=== PATIENT | female | born 1985 | race Hispanic/Latino ===

== ENCOUNTER 2016-10-28 09:43 | Day surgery (SDC) | payer OTHER ==
[~2016-10-28] VITALS: Ht 167.6 cm; Wt 108.0 kg
[~2016-10-28 09:43] MED LIST: ASC500 PO; BENZ100C8 PO; DERSP TOP; IBUP-1152 PO; PHEN-683 PO; Sodium Chloride LOK Flush 10 mL Syringe IV PRN; TOLT1TAB2 PO; fentaNYL-PF 50 mCg/mL 2 mL Inj IVPUSH PRN
[2016-10-28 10:26] VITALS: BP 151/84; PULSE 67; RESP 16; O2SAT 99
[2016-10-28] MEDS: 0.9% Sodium Chloride 1,000 ML IV SCH ×2 (10:43→11:23)
[2016-10-28 11:29] VITALS: BP 106/58; PULSE 68; RESP 14; O2SAT 96
[2016-10-28 11:47] VITALS: BP 108/57; PULSE 68; RESP 14; O2SAT 98
[2016-10-28 11:50] VITALS: BP 115/69; PULSE 68; RESP 20; O2SAT 100
--- NOTE | 2016-10-28 12:12 | ENDO ---
[address] [address] ENDOSCOPY PROCEDURE PATIENT: CHAUNCEY LOYA : 1985 MR#: [id number] ADMIT: 10/28/2016 JOB ID: [id number] DATE: 10/28/2016 PROCEDURE: Colonoscopy. INDICATION: Patient with a three year history of alternating constipation and diarrhea. The patient's ASA classification is 1. Mallampati score is 2. MEDICATIONS: Versed at 5 mg, fentanyl 100 mcg. INSTRUMENT USED: [id number]. PREP QUALITY: Good. PROCEDURE DETAILS: After informed consent was obtained, the patient was brought into the GI suite where she was placed on oxygen via nasal cannula and monitored with continuous pulse oximeter, telemetry, and blood pressure monitoring. A time-out was performed. Then, she was placed in a left lateral decubitus position and medications were administered for sedation. Digital rectal exam was performed which was unremarkable. The colonoscope was then inserted into the rectum and advanced under direct visualization to the terminal ileum which was identified by the presence of the ileocecal valve and villous-appearing mucosa of terminal ileum. Once the terminal ileum was reached, the colonoscope was withdrawn back to the rectum as the mucosa and lumen were examined. In the rectum, retroflexion was performed. Following retroflexion, remaining air in the rectum was suctioned and the procedure was completed. FINDINGS: Normal exam from rectum to terminal ileum. IMPRESSION: Normal colonoscopy. RECOMMENDATIONS: 1. Fiber-rich diet. 2. Increase water intake. 3. Continue MiraLAX. 4. Follow up in GI clinic. COMPLICATIONS: None. ESTIMATED BLOOD LOSS: Zero.
== END 2016-10-28 23:59 | disposition home or self-care (01) ==
LOC: END 09:43
PROVIDERS: ATTEND Internal Medicine Gastroenterology
DX: R19.7 Diarrhea, unspecified (principal); K59.00 Constipation, unspecified
CPT/HCPCS: 45378; G0500; J2250; J7030

== ENCOUNTER 2017-06-05 16:29 | Emergency (ER) | payer OTHER ==
[~2017-06-05] VITALS: Ht 167.6 cm; Wt 109.5 kg
[2017-06-05 16:36] VITALS: BP 147/87; PULSE 79; RESP 16; O2SAT 100
--- NOTE | 2017-06-05 16:43 | ED.REPORT ---
HPI-Dental/Mouth Prob Date of Service Jun 05, 2017 ED Provider: Kenton Rodriguez MD Flavia is a 22-year-old female presenting with chief complaint tooth pain. Patient reports tooth pain in her back lower molar since this morning. Denies fever, shaking chills, abdominal pain, vomiting. Denies difficult breathing or swallowing. Patient is 26 weeks . She is engaged with [facility] for dental care, but is having difficulty getting in to be seen. Nursing Notes Stated Complaint: TOOTHACHE Chief Complaint: Dental Nursing Notes Reviewed: Yes Allergies: Coded Allergies: No Known Allergies (Verified , 10/28/16) Scheduled Amoxicillin (Amoxicillin) 500 Mg Tablet 500 MG PO BID Scheduled PRN Hydrocodone-Acetaminophen 5-325 mg (Hydrocodone-Acetaminophen 5-325 mg) 1 Each Tablet 1-2 TABLET PO QID PRN PRN For Pain General Time Seen by MD: 16:42 Chief Complaint Tooth pain Past Medical History Past Medical History Denies Review of Systems Review of Systems Note: Negative unless stated otherwise in history of present illness Physical Exam General: Well appearing, well developed, well nourished, no acute distress. Head: Atraumatic, normocephalic. No mastoid tenderness. Eyes: No scleral icterus or injection. No discharge. PERRL. Vision grossly intact. Ears: Pinna and tragus nontender with manipulation. External auditory canal patent, atraumatic and without discharge. Tympanic membrane de jesus, shiny and translucent without fluid, bulging, retraction or perforation. Hearing grossly intact. Nose: Symmetrical, nares patent without discharge. No frontal or maxillary sinus tenderness. Mouth/pharynx: No redness, swelling, fluctuance or discharge noted. Rear lower molar is tender to percussion. Poor dentition with multiple caries, mucus membranes moist. Tonsils 2+ and symmetrical, uvula midline. Pharynx noninjected , no cobblestoning or discharge. Voice clear. Neck: No tenderness or lymphadenopathy. Trachea midline. Respiratory: No respiratory distress, no increased work of breathing. Speaks in complete sentences. Skin: Warm and dry. Neurological: Grossly nonfocal. Psychological: alert and oriented. Speech appropriate, linear and logical. Behavior appropriate. Initial Vital Signs Vital Signs (First) Date Time Temp Pulse Resp B/P Pulse Ox O2 Delivery O2 Flow Rate FiO2 06/05/17 16:36 36.4 79 16 147/87 100 Room Air Re-Eval/Medical Decision Med Decision/Clinical Course 32-year-old female, 26 weeks presents to the emergency department with chief complaint of tooth pain. Reports one-day history of lower right molar tooth pain, denies other symptoms. Admit history of cavities there. His examination reveals caries in the rear most lower molar on the right, tender to percussion with tongue blade. No drainable abscess is noted. Tonsils are 2+ and symmetrical, voice clear, no trismus or drooling. Vital signs are normal. At this point I am reassured against peritonsillar abscess, retropharyngeal abscess, Mark's angina, sepsis. I believe this is a dental infection. Prescribed amoxicillin, naproxen,, [place] with precautions. Advised dental follow up at [facility]. Provided with return precautions. Patient verbalizes understanding of and consented to this plan. Discharge & Departure Primary Impression: Dental infection Disposition: Home Discharge Condition All VS Reviewed: Yes Condition: Stable Additional Instructions: Evaluation for tooth pain in the emergency department includes intravenous physical examination which suggested to have a dental infection. I will write a prescription for amoxicillin 500 mg to be taken 3 times a day for the next 10 days. This is safe during . The pain is best treated with 500 mg of naproxen (Aleve) every 12 hours, or 1000 mg of acetaminophen (Tylenol) every 6 hours. These drugs can be taken at the same time for more severe pain. I have written a prescription for a small amount of hydrocodone/acetaminophen 5/325 mg which can be SUBSTITUTED for the Tylenol to treat more severe pain. Do not take them together, and do not drink alcohol or operate a vehicle within 4 hours of taking this medication. Naproxen (Aleve) is safe in after the first trimester and before 30 weeks gestation. Hydrocodone/acetaminophen is safe to use for a short time during . Acetaminophen (Tylenol) is the pain medication of choice during . Apply ice 2-3 times a day for additional pain relief. Follow-up with [facility] dental for definitive care. Return to emergency department for new or worsening symptoms including increasing pain, fever, difficulty breathing or swallowing. Referrals: Rashid Perry MD (PCP) [facility] EDSupervising Provider for APC: Kenton Rodriguez MD Attending Statement Attending attestation: I saw this patient in conjunction with Baltazar Reyes PA-C. I agree with the workup, evaluation, treatment and disposition. Kenton Rodriguez MD copies to: Rashid Perry MD, Beck O MD Jun 05, 2017 16:43 Baltazar Reyes PA-C Jun 05, 2017 18:17
[2017-06-05] MEDS ORDERED: HYDR-4003 PO (18:21)
[2017-06-05] MEDS ORDERED: AMOX500T2 PO (18:21)
[2017-06-05 18:52] VITALS: BP 138/78; PULSE 82; RESP 16; O2SAT 100
== END 2017-06-05 18:43 | disposition home or self-care (01) ==
LOC: SED 16:29
DX: K04.7 Periapical abscess without sinus (principal)